=== PATIENT | female | born 1960 | race Caucasian/White ===

== ENCOUNTER → 2017-06-17 | Outpatient (CLI) | payer OTHER ==
--- NOTE | 2017-06-17 09:56 | MM ---
Reason for exam: additional evaluation requested from prior study. Last mammogram was performed 1 year and 9 months ago. History: Patient is postmenopausal. Family history of breast cancer in mother at age 75. Benign right mammotome panel of the right breast, December 10, 2004. Taking estrogen for 10 years beginning at age 45. Physical Findings: Nurse Summary: 1cm nodule in the left breast at 1 o'clock (nurse kp). MG Diagnostic Mammo w CAD NASH Bilateral CC and MLO view(s) were taken. Prior study comparison: September 30, 2015, bilateral MG diagnostic mammo w CAD NASH. March 20, 2015, bilateral MG 3d diag mammo w/cad NASH. The breast tissue is heterogeneously dense. This may lower the sensitivity of mammography. There is a focal asymmetry at the 6 o'clock position on the left breast at anterior depth corresponding to the sonographic abnormality. These results were verbally communicated with the patient and result sheet given to the patient on 06/17/17. ASSESSMENT: Suspicious, BI-RAD 4 RECOMMENDATION: Ultrasound core biopsy of the left breast. Called with mammographic findings and has scheduled an appointment for the patient for 06/20/17 at 1:[address] Roy. PRELIMINARY REPORT CALLED AND FAXED TO DR. ROY ON 06/17/17.
--- NOTE | 2017-06-17 10:01 | USB ---
Reason for exam: additional evaluation requested from prior study. History: Patient is postmenopausal. Family history of breast cancer in mother at age 75. Benign right mammotome panel of the right breast, December 10, 2004. Taking estrogen for 10 years beginning at age 45. US Breast LT Left breast ultrasound includes all four quadrants, the retroareolar region and axilla. Finding demonstrates a 0.9 x 0.6 x 0.5cm irregular, solid, hyperechoic lesion at 6 o'clock. Shadowing and increased in size in comparison to the prior warranting biopsy. These results were verbally communicated with the patient and result sheet given to the patient on 06/17/17. ASSESSMENT: Suspicious, BI-RAD 4 RECOMMENDATION: Ultrasound core biopsy of the left breast. Called with mammographic findings and has scheduled an appointment for the patient for 06/20/17 at 1:[address] Roy. PRELIMINARY REPORT CALLED AND FAXED TO DR. ROY ON 06/17/17.
== END | disposition home or self-care (01) ==
LOC: RADMAMWWP 08:08
PROVIDERS: ATTEND Family Medicine
DX: N64.59 Other signs and symptoms in breast (principal)
CPT/HCPCS: 77066

== ENCOUNTER → 2017-07-04 | Day surgery (SDC) | payer OTHER ==
[2017-07-04 07:28] VITALS: RESP 16; BMI 42.0
[2017-07-04 08:43] VITALS: BP 129/68; PULSE 90; TEMP 97.9
--- NOTE | 2017-07-04 09:08 | USB ---
EXAMINATION TYPE: US biopsy breast VAD LT, MG diagnostic mammo LT wo CAD DATE OF EXAM: 07/04/2017 CLINICAL HISTORY: R92.8 Abn mammogram. Abnormal ultrasound TECHNIQUE: Ultrasound guided core biopsy of left breast with clip placement. COMPARISON: Left breast mammogram and ultrasound June 17, 2017 FINDINGS: The procedure of ultrasound guided core biopsy was explained to the patient. Benefits, alternatives, and risks were discussed. An informed consent was then obtained. The patient was placed in supine positioning for imaging and for the procedure. Preprocedure imaging redemonstrates vague mixed partially shadowing area 6:00 position zone a left breast measuring roughly 9 mm long axis. The overlying skin was prepped and draped in usual sterile fashion. Lidocaine buffered with bicarbonate was used as anesthetic into the skin and subcutaneous tissue up to area of concern in the left breast. Under ultrasound guidance, a 12-gauge vacuum assisted biopsy gun device was used to obtain 3 core samples. Following this, a biopsy clip was left in lesion. The patient tolerated the procedure well without any immediate complication. The patient was kept in the radiology department for short stay after the procedure and then discharged home in stable condition. Postprocedure mammogram shows successful deployment of clip with some increased surrounding density could reflect small amount of hematoma versus instillation of anesthetic. Clip position relative to area of concern mammogram is satisfactory IMPRESSION: Successful, uncomplicated ultrasound guided core biopsy of area of concern in the left breast, full pathology results to follow. Low to intermediate index of suspicion noted at time of procedure. Pathology Results: Benign NEEDLE CORE BIOPSY OF LEFT BREAST: BENIGN BREAST PARENCHYMA SHOWING FOCAL DUCT DILATION. SURROUNDING STROMA: PSEUDOANGIOMATOUS HYPERPLASIA (PASH). Recommendation Follow up mammogram and ultrasound of the left breast in 6 months. JENND
== END ==
LOC: RADUSWWP 07:11
PROVIDERS: ATTEND Internal Medicine
DX: N62 Hypertrophy of breast (principal)
CPT/HCPCS: 88305; 77065; 19083; A4648; J2001

== ENCOUNTER → 2017-07-04 | Outpatient (CLI) | payer OTHER ==
[2017-07-04 10:24] LABS: Blood Urea Nitrogen 16 mg/dL (7-17)
--- NOTE | 2017-07-04 11:29 | CT ---
EXAMINATION TYPE: CT abdomen pelvis wo/w con DATE OF EXAM: 07/04/2017 COMPARISON: 06/12/2008 HISTORY: Diverticulosis, h/o hernia CT DLP: 3590.8 mGycm Automated exposure control for dose reduction was used. CONTRAST: CT scan of the abdomen pelvis is performed without and with IV Contrast, patient injected with 100 mL of Isovue 300. FINDINGS- LUNG BASES-subsegmental consolidation left lung base suggestive of atelectasis. Asymmetric attenuatio n within the left breast. LIVER/GB-postcholecystectomy changes are noted.. PANCREAS-atrophy of the pancreas noted.. SPLEEN- No gross abnormality is seen. ADRENALS-nonspecific subcentimeter adrenal nodularity.. KIDNEYS/BLADDER-1.5 cm left renal lesion measures 11 Hounsfield units compatible simple cyst. Nonobst ructing 2 mm left renal calculus. 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 Duplicated collecting system noted. Findings stable from 2008. BOWEL- no bowel dilatation. Normal appendix. LYMPH NODES- No greater than 1cm abdominal or pelvic lymph nodes are appreciated. OSSEOUS STRUCTURES-degenerative change of the vertebral column facet arthropathy noted. OTHER- subcutaneous granulomas in the right flank. Abnormal attenuation involving the anterior abdom inal wall may be related to scar correlate clinically for previous intervention. IMPRESSION- 1. Left basilar atelectasis or early infiltrate. Favor atelectasis. 2. Simple appearing 1.5 cm left renal cyst measuring 11 Hounsfield units. Retrospectively stable from the CAT scan 06/12/2008 3. Asymmetric attenuation of the left breast mammogram is already scheduled for 07/04/2017.
== END | disposition home or self-care (01) ==
LOC: RADCTMAIN 09:01
PROVIDERS: ATTEND Nurse Practitioner Family
DX: N28.1 Cyst of kidney, acquired (principal); R10.9 Unspecified abdominal pain; R16.0 Hepatomegaly, not elsewhere classified; K76.0 Fatty (change of) liver, not elsewhere classified
CPT/HCPCS: 82565; 84520; 74178; 36415; Q9967

== ENCOUNTER 2017-08-15 08:50 | Day surgery (SDC) | payer OTHER ==
[~2017-08-15 08:50] MED LIST: LACTATED RINGERS 1,000 ML IV SCH
[2017-08-15 10:18] VITALS: TEMP 98.2
[2017-08-15] MEDS ORDERED: LIDOCAINE 1% 20 ML VIAL (10MG/ML) FOR IV START INTRADERMA ONE (10:24)
[2017-08-15 10:31] LABS: Glucose,Whole Blood 126 mg/dL (75-99)
[2017-08-15] MEDS ORDERED: PROPOFOL 10 MG/ML 20 ML VIAL IV ONE (10:32)
[2017-08-15] MEDS ORDERED: LIDOCAINE 1% INJ 10MG/ML (20 ML MDV) ONE (10:32)
--- NOTE | 2017-08-15 10:53 | P.PCN ---
Date of Procedure: 08/15/17 Procedure(s) Performed: Procedure: Total colonoscopy. Preoperative diagnosis: History of polyps and change in bowel habits. Postoperative diagnosis: Exam within normal limits. Preparation: HalfLytely prep. Sedation: Was provided by anesthesia. Brief clinical history: The patient is a 57-year-old female who was evaluated in the office regarding upper abdominal pains and chronic constipation. She indicated that she had a colonoscopy in 2011 and she believes she had polyps removed at that time. There is no history of bleeding or anemia. Procedure: With the patient on her left lateral decubitus position and after informed consent and adequate sedation, the perianal area was inspected and it did not show any fissures or fistulas. There were no masses felt on digital rectal examination. The Olympus CFQ 160L video colonoscope was then inserted in the rectum in the usual fashion and advanced to the cecum. The mucosa appeared healthy. No polyps or tumors were seen or any obvious diverticular disease or other pathology. I retroflexed the endoscope in the rectum before the endoscope was withdrawn. The patient tolerated the procedure well. Plan: The patient was reassured. Discussed dietary measures. She will follow- up with you as planned and to see in the office in follow-up later this month and keep you updated on her progress.
[2017-08-15 11:24] VITALS: BP 128/60; PULSE 88; RESP 16
== END 2017-08-15 11:28 | disposition home or self-care (01) ==
LOC: ORWHC2ENDO 08:50
DX: K59.09 Other constipation (principal); R10.10 Upper abdominal pain, unspecified; Z86.010 Personal history of colon polyps; I10 Essential (primary) hypertension; J44.9 Chronic obstructive pulmonary disease, unspecified; E11.9 Type 2 diabetes mellitus without complications; Z79.82 Long term (current) use of aspirin; Z79.4 Long term (current) use of insulin; Z79.899 Other long term (current) drug therapy; Z87.891 Personal history of nicotine dependence
CPT/HCPCS: 45378; J2001; J2704

== ENCOUNTER → 2018-01-12 | Outpatient (CLI) | payer OTHER ==
--- NOTE | 2018-01-12 10:18 | USB ---
Reason for exam: follow-up at short interval from prior study. History: Patient is postmenopausal. Family history of breast cancer in mother at age 75. Benign US biopsy breast VAD LT of the left breast, July 04, 2017. Benign right mammotome panel of the right breast, December 10, 2004. Taking estrogen for 10 years beginning at age 45. Physical Findings: Nurse did not find any significant physical abnormalities on exam. US Breast LT Left complete breast ultrasound includes all four quadrants, the retroareolar region and axilla. Finding demonstrates a 0.6 x 0.4 x 0.8cm oval, solid lesion at 6 o'clock, questionable clip seen. These results were verbally communicated with the patient and result sheet given to the patient on 01/12/18. ASSESSMENT: Benign, BI-RAD 2 RECOMMENDATION: Routine screening mammogram of both breasts in 6 months. Back on schedule.
== END | disposition home or self-care (01) ==
LOC: RADUSWWP 09:12
PROVIDERS: ATTEND Family Medicine
DX: R92.8 Other abnormal and inconclusive findings on diagnostic imaging of breast (principal)

== ENCOUNTER → 2018-07-24 | Outpatient (CLI) | payer OTHER ==
--- NOTE | 2018-07-25 10:01 | MM ---
Reason for exam: screening (asymptomatic). Last mammogram was performed 1 year and 1 month ago. History: Patient is postmenopausal. Family history of breast cancer in mother at age 75. Benign US biopsy breast VAD LT of the left breast, July 04, 2017. Benign right mammotome panel of the right breast, December 10, 2004. Taking estrogen for 10 years beginning at age 45. Physical Findings: A clinical breast exam by your physician is recommended on an annual basis and results should be correlated with mammographic findings. MG Screening Mammo w CAD Bilateral CC and MLO view(s) were taken. Prior study comparison: July 04, 2017, left breast MG diagnostic mammo LT wo CAD. June 17, 2017, bilateral MG diagnostic mammo w CAD NASH. There are scattered fibroglandular densities. There are bilateral calcifications that appear similar to priors back to 2013. Bilateral biopsy markers noted. No significant changes when compared with prior studies. ASSESSMENT: Benign, BI-RAD 2 RECOMMENDATION: Routine screening mammogram of both breasts in 1 year.
== END | disposition home or self-care (01) ==
LOC: RADMAMWWP 07:38
PROVIDERS: ATTEND Family Medicine
DX: Z12.31 Encounter for screening mammogram for malignant neoplasm of breast (principal)
CPT/HCPCS: 77067

== ENCOUNTER 2019-05-23 20:54 | Inpatient (IN) | payer OTHER ==
[2019-05-23 21:07] VITALS: RESP 16
[2019-05-23] MEDS ORDERED: KETOROLAC 30 MG/ML 1 ML VIAL IVP PRN (21:38)
[2019-05-23] MEDS ORDERED: ONDANSETRON 4 MG/2 ML VIAL IVP PRN (21:38)
[2019-05-23] MEDS ORDERED: NALOXONE 0.4 MG/ML 1 ML VIAL IV PRN (21:38)
[2019-05-23] MEDS ORDERED: MORPHINE SULFATE 4 MG/ML SYRINGE IV PRN (21:38)
--- NOTE | 2019-05-23 21:38 | ED ---
Abdominal Pain HPI <William Roldan - Last Filed: 05/23/19 21:49> - General Source: EMS Mode of arrival: EMS Limitations: no limitations <Rica Maldonado - Last Filed: 05/23/19 22:25> - General Chief Complaint: Abdominal Pain Stated Complaint: Bowel Obstruction Time Seen by Provider: 05/23/19 20:57 - History of Present Illness Initial Comments: Patient is a 59-year-old female presenting to the emergency Department as a transfer from [facility]. She is presenting with abdominal pa in, nausea, vomiting, diarrhea that started today. Patient's labs and imaging were reviewed upon arrival. CT shows findings concerning for a small bowel obstruction. She is currently comfortable, pain-free. An NG tube is present. She admits to history of multiple abdominal surgeries including cholecystectomy, bowel resection secondary to diverticulitis, hernia repair. She denies fever, chest pain, shortness of breath. She is no other complaints at this time. Upon arrival to the ER her vital signs are stable. (Rica Maldonado) - Related Data Home Medications Medication Instructions Recorded Confirmed Ascorbic Acid [Vitamin C] 500 mg PO DAILY 07/01/17 08/15/17 Aspirin 81 mg PO DAILY 07/01/17 08/12/17 Cholecalciferol [Vitamin D3] 1,000 unit PO DAILY 07/01/17 08/15/17 Estrogens, Conjugated [Premarin] 0.9 mg PO DAILY 07/01/17 08/15/17 Insulin Detemir (Levemir) [Levemir] 34 unit SQ DAILY 07/01/17 08/15/17 Lisinopril [Zestril] 5 mg PO DAILY 07/01/17 08/15/17 Metoprolol Succinate [Toprol XL] 25 mg PO BID 07/01/17 08/15/17 [place]-3 Fatty Acids/Fish Oil [Fish 1 tab PO DAILY 07/01/17 08/15/17 Oil 1,000 mg Softgel] Vitamin B Complex 1 tab PO DAILY 07/01/17 07/04/17 Allergies Allergy/AdvReac Type Severity Reaction Status Date / Time No Known Allergies Allergy Verified 05/23/19 21:01 Review of Systems ROS Other: All systems not noted in ROS Statement are negative. <William Roldan - Last Filed: 05/23/19 21:49> ROS Other: All systems not noted in ROS Statement are negative. <Rica Maldonado - Last Filed: 05/23/19 22:25> ROS Statement: Those systems with pertinent positive or pertinent negative responses have been documented in the HPI. Past Medical History Past Medical History: Diabetes Mellitus, Hypertension Additional Past Medical History / Comment(s): diverticulitis History of Any Multi-Drug Resistant Organisms: None Reported Past Surgical History: Appendectomy, Bowel Resection, Cholecystectomy Additional Past Surgical History / Comment(s): rectalcele, Past Psychological History: No Psychological Hx Reported Smoking Status: Never smoker Past Alcohol Use History: None Reported Past Drug Use History: None Reported <Rica Maldonado - Last Filed: 05/23/19 22:25> General Exam Limitations: no limitations <Rica Maldonado - Last Filed: 05/23/19 22:25> - General Exam Comments Initial Comments: GENERAL: Well-appearing, well-nourished and in no acute distress. HEAD: Atraumatic, normocephalic. EYES: Pupils equal round and reactive to light, extraocular movements intact, sclera anicteric, conjunctiva are normal. ENT: TMs normal, nares patent, oropharynx clear without exudates. Moist mucous membranes. NG tube present. NECK: Normal range of motion, supple without lymphadenopathy or JVD. LUNGS: Breath sounds clear to auscultation bilaterally and equal. No wheezes rales or rhonchi. HEART: Regular rate and rhythm without murmurs, rubs or gallops. ABDOMEN: Mild epigastric tenderness, slightly distended hard. No guarding, no rebound. No masses appreciated. : Deferred EXTREMITIES: Normal range of motion, no pitting or edema. No clubbing or cyanosis. NEUROLOGICAL: Normal speech, normal gait. PSYCH: Normal mood, normal affect. SKIN: Warm, Dry, normal turgor, no rashes or lesions noted. (Rica Maldonado) Course Vital Signs 05/23/19 21:01 Temperature 98.0 F Pulse Rate 96 Respiratory 16 Rate Blood Pressure 142/75 O2 Sat by Pulse 96 Oximetry Medical Decision Making <William Roldan - Last Filed: 05/23/19 21:49> <Rica Maldonado - Last Filed: 05/23/19 22:25> - Medical Decision Making I saw this patient in conjunction with the physician tmd teacher assistant. I performed independent history and physical exam. Agree with case management. (William Roldan) Patient is a 59-year-old female here for a transfer from [facility] for a small bowel obstruction. Vitals are stable upon arrival she is currently comfortable, pain-free. Lab work from previous hospital is reviewed, shows slight leukocytosis of 15.9, hyponatremia 131 urine shows 2+ ketones, no signs of infection. CT of the abdomen shows small bowel obstruction with possible closed loop obstruction. Patient has been given fluids, pain control. An NG tube is present. Patient will be admitted under Dr. Chu with consult to surgery. Case is discussed with Dr. Roldan. Patient is in agreement with this plan of care. (Rica Maldonado) Disposition <William Roldan - Last Filed: 05/23/19 21:49> Is patient prescribed a controlled substance at d/c from ED?: No Decision Date: 05/23/19 Decision Time: 21:37 <Rica Maldonado - Last Filed: 05/23/19 22:25> Clinical Impression: Small bowel obstruction Disposition: ADMITTED IP TO THIS HOSP Condition: Stable
[2019-05-24] MEDS: SODIUM CHLORIDE 0.9% 1,000 ML IV SCH ×2 (00:05→12:43)
[2019-05-24 00:11] LABS: Glucose,Whole Blood 106 mg/dL (75-99)
[2019-05-24 06:03] LABS: Glucose,Whole Blood 102 mg/dL (75-99)
[2019-05-24] MEDS ORDERED: BENZOCAINE SPRAY 1 CAN MUCOUS MEM PRN (08:53)
[2019-05-24] MEDS ORDERED: PANTOPRAZOLE 40 MG/10 ML VIAL IV SCH (09:00)
[2019-05-24] MEDS: ACETAMINOPHEN IV (For NPO) 1,000 MG in EMPTY BAG 1 BAG IVPB SCH ×2 (09:32→15:04)
[2019-05-24 12:07] LABS: Glucose,Whole Blood 99 mg/dL (75-99)
--- NOTE | 2019-05-24 14:17 | P.GSCN ---
<Estela Roche A - Last Filed: 05/24/19 14:09> History of Present Illness Consult date: 05/24/19 Reason for Consult: Small bowel obstruction Requesting physician: Rica Maldonado History of present illness: CHIEF COMPLAINT: Small bowel obstruction HISTORY OF PRESENT ILLNESS: 59-year-old female who was transferred from [facility] secondary to small bowel traction. Patient reports she began having pain on Tuesday evening after eating dinner last her. She reports she woke up Tuesday and started having nausea and vomiting. She reports mild mid upper abdominal pain. NG tube was placed at outside facility. Currently with 600 mL bilious drainage. Patient reports she is passing flatus. PAST MEDICAL HISTORY: See list. PAST SURGICAL HISTORY: See list. MEDICATIONS: See list. ALLERGIES: See list. SOCIAL HISTORY: No illicit drug use. REVIEW OF SYSTEMS: CONSTITUTIONAL: Denies fever or chills. HEENT: Denies blurred vision, vision changes, or eye pain. Denies hemoptysis ENDOCRINE: Denies heat or cold intolerance. CARDIOVASCULAR: Denies chest pain or pressure. RESPIRATORY: No shortness of breath. GASTROINTESTINAL: See HPI for pertinent findings NEURO: Denies history of seizures. PSYCH: No depression or suicidal ideation HEMATOLOGIC: Denies bleeding disorders. LYMPHATIC: The patient denies any lumps and bumps around the neck. GENITOURINARY: Denies any blood in urine or increased urinary frequency. MUSCULOSKELETAL: Denies myalgias. Denies joint swelling. Denies decreased range of motion beyond patients baseline. SKIN: Denies pruitis. Denies rash. PHYSICAL EXAM: VITAL SIGNS: Reviewed GENERAL: Well-developed in no acute distress. HEENT: No sclera icterus. Extraocular movements grossly intact. Moist buccal mucosa. Head is atraumatic, normocephalic. Hears conversational speech. No nasal drainage. NECK: Supple without lymphadenopathy. CHEST: Non-labored respirations and equal bilateral excursions. CARDIOVASCULAR: Regular rate with regular rhythm. Palpable 2+ radial pulses. ABDOMEN: Soft. Nondistended. Mild tenderness upon palpation of upper abdomen. NG tube with bilious drainage MUSCULOSKELETAL: No clubbing, cyanosis or edema. NEUROLOGIC: No focal or lateralizing signs. Cranial nerves II through XII grossly intact. PSYCH: Appropriate affect. Alert and oriented to person, place and time. SKIN: Well perfused. Good skin turgor. LABORATORY DATA: Laboratory data from outside facility reviewed. WBC 15.9. IMAGING: CT abdomen and pelvis completed at outside facility revealed small bowel obstruction with possible closed loop obstruction per their radiology dictation ASSESSMENT: 1. Small bowel obstruction 2. History of cholecystectomy 3. History of bowel resection with colostomy secondary to perforated diverticulitis with subsequent ostomy reversal, 2011 PLAN: Obtain 2V abdominal x-ray Pending x-ray results, possibility of removing NG tube today and beginning clear liquid diet No surgical intervention recommended at this time Nurse practitioner note has been reviewed by physician. Signing provider agrees with the documented findings, assessment, and plan of care. Past Medical History Past Medical History: Diabetes Mellitus, Hypertension Additional Past Medical History / Comment(s): diverticulitis History of Any Multi-Drug Resistant Organisms: None Reported Past Surgical History: Appendectomy, Bowel Resection, Cholecystectomy Additional Past Surgical History / Comment(s): rectalcele, Past Psychological History: No Psychological Hx Reported Smoking Status: Never smoker Past Alcohol Use History: None Reported Past Drug Use History: None Reported Medications and Allergies Home Medications Medication Instructions Recorded Confirmed Type Cyclobenzaprine [Flexeril] 10 mg PO BID 05/23/19 05/23/19 History Ibuprofen [Motrin] 800 mg PO BID 05/23/19 05/23/19 History Insulin Glargine,Hum.rec.anlog 88 unit SQ PC-SUPPER 05/23/19 05/23/19 History [Basaglar Kwikpen U-100] Lisinopril-Hctz 10-12.5 mg 1 tab PO DAILY 05/23/19 05/23/19 History [Zestoretic 10-12.5] Methocarbamol [Robaxin] 500 mg PO BID 05/23/19 05/23/19 History Metoprolol Tartrate [Lopressor] 25 mg PO BID 05/23/19 05/23/19 History Montelukast Sodium [Singulair] 10 mg PO DAILY 05/23/19 05/23/19 History metFORMIN HCL 1,000 mg PO BID 05/23/19 05/23/19 History Allergies Allergy/AdvReac Type Severity Reaction Status Date / Time No Known Allergies Allergy Verified 05/23/19 21:01 Surgical - Exam Vital Signs Temp Pulse Resp BP Pulse Ox 98.0 F 96 16 142/75 96 05/23/19 21:01 05/23/19 21:01 05/23/19 21:01 05/23/19 21:01 05/23/19 21:01 Results - Labs Abnormal Lab Results - Last 24 Hours (Table) 05/24/19 05/24/19 Range/Units 00:10 06:02 POC Glucose (mg/dL) 106 H 102 H (75-99) mg/dL <Shae Corrigan Jase - Last Filed: 05/24/19 16:54> History of Present Illness History of present illness: Outside CT of the abdomen and pelvis independently reviewed demonstrating diffuse gas throughout the colon including small bowel. Features of small bowel dilation is confirmed. No evidence of free air or ascites identified. I do not agree with outside radiologist interpretation of a closed loop obstruction. Since placement of nasogastric tube, patient is passing flatus. Abdominal pain is resolved. Abdomen is less distended. We'll repeat abdominal films. Likely anticipate discontinue nasogastric tube within 24 hours include and start of diet. Possible discharge home also within 24+ hours. Surgical - Exam Vital Signs Temp Pulse Resp BP Pulse Ox 98.0 F 96 16 142/75 96 05/23/19 21:01 05/23/19 21:01 05/23/19 21:01 05/23/19 21:01 05/23/19 21:01 Results - Labs Abnormal Lab Results - Last 24 Hours (Table) 05/24/19 05/24/19 Range/Units 00:10 06:02 POC Glucose (mg/dL) 106 H 102 H (75-99) mg/dL Assessment and Plan (1) Morbid obesity due to excess calories Current Visit: Yes Status: Acute Code(s): E66.01 - MORBID (SEVERE) OBESITY DUE TO EXCESS CALORIES SNOMED Code(s): 585181995 (2) BMI 40.0-44.9, adult Current Visit: Yes Status: Acute Code(s): Z68.41 - BODY MASS INDEX (BMI) 40.0-44.9, ADULT SNOMED Code(s): 968646779 (3) Peritoneal adhesions Current Visit: Yes Status: Acute Code(s): K66.0 - PERITONEAL ADHESIONS (P OSTPROCEDURAL) (POSTINFECTION) SNOMED Code(s): 74089212 (4) Hypertensive heart disease Current Visit: Yes Status: Acute Code(s): I11.9 - HYPERTENSIVE HEART DISEASE WITHOUT HEART FAILURE SNOMED Code(s): 29092422 (5) Diabetes mellitus type 2, insulin dependent Current Visit: Yes Status: Acute Code(s): E11.9 - TYPE 2 DIABETES MELLITUS WITHOUT COMPLICATIONS; Z79.4 - ELECTRIC LINEMAN (CURRENT) USE OF INSULIN SNOMED Code(s): 235326892 (6) Small bowel obstruction Current Visit: Yes Status: Acute Code(s): K56.609 - UNSP INTESTNL OBST, UNSP TO PARTIAL VERSUS COMPLETE OBST SNOMED Code(s): 472308052
[2019-05-24] MEDS ORDERED: ACETAMINOPHEN IV (For NPO) 1,000 MG in EMPTY BAG 1 BAG IVPB PRN (15:02)
[2019-05-24 15:34] VITALS: BP 142/82; PULSE 93; TEMP 97.9
--- NOTE | 2019-05-24 15:35 | XR ---
EXAMINATION TYPE: XR abdomen 2V DATE OF EXAM: 05/24/2019 HISTORY: Pain. Technique: 2 views of the abdomen are submitted. Comparison: None. Findings: NG tube is seen coursing into the stomach. There is no convincing evidence of pneumoperitoneum. The Bowel gas pattern is nonspecific and nonobstructive. No sizable air-fluid levels are seen. No mass effects are noted. No renal calcifications are identified. IMPRESSION: 1. Nonspecific nonobstructive bowel gas pattern
--- NOTE | 2019-05-25 01:08 | HP ---
HISTORY AND PHYSICAL HISTORY AND PHYSICAL AND DISCHARGE SUMMARY: HISTORY OF PRESENT ILLNESS: This 59-year-old woman with a past medical history of multiple medical problems including history of diabetes, hypertension, history of diverticulitis, history of bowel resection, cholecystectomy, multiple surgeries, being followed by Dr. Heath Schreiber in the outpatient setting, was referred from [facility] with complaints of small-bowel obstruction. Patient had NG tube inserted and the patient had nausea, vomiting, also. The patient has mild abdominal pain. After NG tube, patient improved significantly. Dr. Corrigan recommended that NG tube be removed and the patient discharged home for further evaluation and treatment. There is no history of fever, rigors. No headache, loss of consciousness, seizures at this time. PAST MEDICAL HISTORY: Diabetes, hypertension, diverticulosis, appendectomy, small bowel obstruction, cholecystectomy. MEDICATIONS: Home medications are reviewed and include: 1. Singulair 10 mg p.o. daily. 2. Lopressor 25 mg b.i.d. 3. Motrin 800 mg b.i.d. p.r.n. 4. Robaxin 500 mg p.o. b.i.d. 6. Insulin Basaglar subcu supper. 7. Flexeril 10 mg b.i.d. 8. Metformin 1000 mg p.o. daily. ALLERGIES: None. FAMILY HISTORY: No history of disease or strokes in the family. SOCIAL HISTORY: No history of smoking. No alcohol. REVIEW OF SYSTEMS: ENT: No diminished vision. No diminished hearing. CARDIOVASCULAR as mentioned earlier. RESPIRATORY: As mentioned earlier. GASTROINTESTINAL: As mentioned earlier. no dysuria. NERVOUS SYSTEMS: No numbness or weakness. ALLERGY/IMMUNOLOGY: No asthma or hayfever. MUSCULOSKELETAL: As mentioned earlier. HEMATOLOGY/ONCOLOGY: No history of anemia. ENDOCRINE: Diabetes. CONSTITUTIONAL: As mentioned earlier. DERMATOLOGY: Negative. RHEUMATOLOGY: Negative. PSYCHIATRIC: As mentioned earlier. PHYSICAL EXAM: Alert and oriented times three. Pulse 93, blood pressure 140/82, respiration 16, temperature 97.8, pulse ox 94% on room air. HEENT: Conjunctivae normal. NECK: No JVD. CARDIOVASCULAR: S1, S2 muffled. RESPIRATION: Breath sounds diminished in the bases. A few scattered rhonchi and crackles. ABDOMEN: Soft, obese, nontender. LEGS are no edema. No swelling. Lymphatics: No lymph nodes palpable in the neck, axillae or groin. . JOINTS: No active deforming arthropathy. LABS: Glucose 102 to 99. ASSESSMENT: 1. Abdominal pain with a small bowel obstruction, improved. 2. History of cholecystectomy. 3. History of bowel resection with colostomy secondary to perforated diverticulitis and subsequent ostomy reversal. 4. Diabetes mellitus type 2. 5. Hypertension. 6. History of bowel resection. 7. History of cholecystectomy. 8. History of obesity with body mass index 41.4. RECOMMENDATIONS AND DISCUSSION: In this 59-year-old woman who presented with multiple medical issues, at this time I recommend to continue current medications, management and the patient has improved significantly after NG tube. The patient is moving a flatus and Dr. Corrigan's recommend the patient be discharged and follow up in the outpatient setting. The following are the recommendations to be continued at the time of discharge. Followup diet is per surgery. Follow up with Dr. Heath Schreiber as recommended 2-3 days follow. Surgery is recommended. DISCHARGE MEDICATIONS ARE: 1. Lantus 82 units subcu as before. 2. Flexeril 10 mg p.o. b.i.d. 3. Lopressor 25 mg b.i.d. 4. Metformin 1000 mg p.o. b.i.d. 5. Motrin 800 mg b.i.d. p.r.n. 6. Robaxin 500 mg p.o. b.i.d. 7. Singulair 10 mg p.o. 8. Hydrocodone 10/12.5 mg p.o. daily. Once again, the patient being discharged in stable condition with guarded prognosis. MMODL / IJN: [id number] / MTDD
== END 2019-05-24 18:46 | disposition home or self-care (01) | DRG 389 ==
LOC: EC 20:54 → 4SSUR 21:48
PROVIDERS: ADMIT Internal Medicine; ATTEND Internal Medicine
DX: K56.609 Unspecified intestinal obstruction, unspecified as to partial versus complete obstruction (principal); Z68.41 Body mass index [BMI] 40.0-44.9, adult; K66.0 Peritoneal adhesions (postprocedural) (postinfection); I11.9 Hypertensive heart disease without heart failure; E11.9 Type 2 diabetes mellitus without complications; E66.01 Morbid (severe) obesity due to excess calories; Z79.4 Long term (current) use of insulin; Z79.82 Long term (current) use of aspirin; Z79.899 Other long term (current) drug therapy; Z90.49 Acquired absence of other specified parts of digestive tract
CPT/HCPCS: 74019; 99285

== ENCOUNTER → 2019-09-10 | Outpatient (CLI) | payer OTHER | END | disposition home or self-care (01) | LOC: LABWHC1 11:09 | PROVIDERS: ATTEND Internal Medicine | DX: Z11.59 Encounter for screening for other viral diseases (principal) ==

== ENCOUNTER → 2019-09-13 | Day surgery (SDC) | payer OTHER ==
[2019-09-11 15:30] VITALS: BMI 41.1
[~2019-09-13] MED LIST changes: +DEXTROSE 50% SYRINGE 50 ML IVP ONE; +LIDOCAINE 1% (10MG/ML) FOR IV START INTRADERMA ONE; +PROPOFOL 10 MG/ML 20 ML VIAL IV ONE
[2019-09-13 07:41] VITALS: TEMP 98.8
[2019-09-13 07:50] LABS: Glucose,Whole Blood 65 mg/dL (75-99)
[2019-09-13 07:50] LABS: Glucose,Whole Blood 59 mg/dL (75-99)
--- NOTE | 2019-09-13 08:45 | P.PCN ---
Date of Procedure: 09/13/19 Description of Procedure: BRIEF HISTORY: Patient is a who follows up for colonoscopy after recent hospitalization for a small bowel obstruction. Last colonoscopy 2018 within normal limits. History of colonic resection. History of colon polyps. History of alternating constipation and diarrhea. PROCEDURE PERFORMED: Colonoscopy. PREOPERATIVE DIAGNOSIS: Intestinal obstruction, history of colon polyps, last colonoscopy 2018. ESTIMATED BLOOD LOSS: Minimal. IV sedation per Anesthesia. PROCEDURE: After informed consent was obtained, the patient, was brought into the endoscopy unit. IV sedation was administered by Anesthesia under continuous monitoring. Digital rectal examination was normal. Initially the Olympus CF-190 flexible video colonoscope was then inserted in the rectum, gradually advanced into the cecum without any difficulty. Careful examination was performed as the scope was gradually being withdrawn. Ileocecal valve and the appendiceal orifice were visualized and appeared normal. Prep was fair. Mucosa of the cecum, ascending colon, transverse colon, descending colon, sigmoid colon, and rectum appeared normal. Retroflexion was performed in the rectum and no lesions were seen, low- grade internal hemorrhoids noted. The patient tolerated the procedure well. IMPRESSION: Normal-appearing colon from rectum to cecum, however complete visualization of the mucosa somewhat limited by fair prep. Internal hemorrhoids. RECOMMENDATIONS: Findings of this examination were discussed with the patient. Okay to resume diet. Okay to resume medications. Would recommend continuing screening colonoscopies previously scheduled interval, with next colonoscopy previously recommended for 2022.
[2019-09-13 08:46] VITALS: RESP 17
[2019-09-13 08:49] LABS: Glucose,Whole Blood 57 mg/dL (75-99)
[2019-09-13 08:53] VITALS: BP 119/64; PULSE 82
[2019-09-13 09:05] LABS: Glucose,Whole Blood 48 mg/dL (75-99)
[2019-09-13 09:15] LABS: Glucose,Whole Blood 120 mg/dL (75-99)
== END ==
LOC: ORWHC2ENDO 06:44
PROVIDERS: ATTEND Internal Medicine
DX: K64.8 Other hemorrhoids (principal); Z86.010 Personal history of colon polyps; Z87.19 Personal history of other diseases of the digestive system; I10 Essential (primary) hypertension; J45.909 Unspecified asthma, uncomplicated; G47.33 Obstructive sleep apnea (adult) (pediatric); E11.9 Type 2 diabetes mellitus without complications; M19.90 Unspecified osteoarthritis, unspecified site; Z90.49 Acquired absence of other specified parts of digestive tract; Z79.84 Long term (current) use of oral hypoglycemic drugs; Z79.899 Other long term (current) drug therapy; Z87.891 Personal history of nicotine dependence; Z90.710 Acquired absence of both cervix and uterus
CPT/HCPCS: 45378; J2704